=== PATIENT | female | born 1980 | race Caucasian/White ===

== ENCOUNTER 2022-09-01 12:39 | Outpatient (CLI) | payer OTHER, SELFPAY ==
--- NOTE | ~2022-09-01 | MR_ITS ---
MRI of the left shoulder Technique: Axial proton-density fat-sat images, coronal proton density fat-sat and T2 fat-sat images, and sagittal T1-weighted and T2 fat-sat images were acquired. Clinical History: Pain Findings: There is mild AC joint degenerative change. No subacromial spur. Coracoclavicular, coracoac romial, and coracohumeral ligaments are intact. Supraspinatus and infraspinatus tendons are intact, without partial or full-thickness tear. Subscapul mahamed tendon is intact. Tendon of the long head of the biceps is intact. Possible focal tear at the anterior labrum towards the anterosuperior portion. Remainder of the labru m is intact. Inferior glenohumeral ligament is thickened with increased signal. There is no significant degenerati ve change or effusion of the glenohumeral joint. No fluid distention of the subacromial/subdeltoid bu rsa. No muscle atrophy or edema. Impression: Thickening and increased signal of the inferior glenohumeral ligament suggests adhesive capsulitis. Possible focal tear of the anterior labrum. Reviewed, dictated and finalized at location . IT AGENT Impression: Thickening and increased signal of the inferior glenohumeral ligament suggests adhesive capsulitis. Possible focal tear of the anterior labrum.
== END 2022-09-01 12:40 | disposition home or self-care (01) ==
PROVIDERS: PCP Family Medicine
DX: M25.512 Pain in left shoulder (principal); M25.612 Stiffness of left shoulder, not elsewhere classified; R93.6 Abnormal findings on diagnostic imaging of limbs; M75.32 Calcific tendinitis of left shoulder
CPT/HCPCS: 73221

== ENCOUNTER 2022-09-29 07:56 | Outpatient (RCR) | payer OTHER, SELFPAY ==
--- NOTE | 2022-09-29 08:42 | PTOPEVAL1 ---
Assessment and note entered by Toño Perez Evaluation Information Assessment Status Evaluation Diagnosis adhesive capsulitis of the left shoulder Onset 05/12/22 Subjective Information Pt. reports she developed shoulder pain around May. She recalls no specific incident that brought on the pain. She describes pain in both the front and the back of the shoulder. She reports that she has undergone both MRI and xray. She reports that her MRI revealed a torn labrum. she did receive and injection which has helped to reduce her pain. she reports that she is sleeping better since her injection. She notes pain and stiffness with reaching overhead and behind her back. she states that she cannot wash her hair or put deodorant on without pain and difficulty. She reports that her goal is to be able to reach overhead as she did before her injury. Reported Pain Level Pain Score 3: Self Report Assessment PT Clinical Summary Pt. is a 42 year old female who enters the clinic with left shoulder adhesive capsulitis. She is right hand dominant. She currently presents with impaired strength, impaired ROM and pain. continued skilled PT is indicated in order to improve these areas to allow the pt. to achieve her goal of improved mobility. Plan of Care Interventions Electrical Stimulation,Hot Pack/Cold Pack,Manual Therapy,Neuro Re-education,Therapeutic Activities, Therapeutic Exercise PT Services Indicated Yes Treatment Frequency and 2x/week x 12 visits Duration These treatments will address the objective and functional deficits as defined above. The patient will be advanced safely and appropriately in order for the patient to progress towards his/her prior level of function. Additional exercises will be introduced and as well as a comprehensive home exercise program upon discharge, if needed, ?to ensure carryover of functional gains achieved in the clinic. This treatment plan has been reviewed and agreement upon by the patient.
--- NOTE | 2022-11-09 08:44 | PTOPEVAL1 ---
Assessment and note entered by Toño Perez Evaluation Information Assessment Status Discharge Diagnosis adhesive capsulitis of the left shoulder Onset 05/12/22 Subjective Information Pt. reports that she is noticing improved mobility . She is still discouraged as pain remains and fluctuates depending on her activity level. Pt. states that despite the continued pain she is much improved compared to 1-2 months ago. She reports that she will return to the doctor tomorrow and discuss options to reduce pain. Reported Pain Level Pain Score 4: Self Report Assessment PT Clinical Summary Pt. has demosntrated signficant progress in ROM and pain reports. Despite her progress pain remains. She still remains discouraged by continued pain. Explained to the pt. that adhesive capsulitis can be a long recovery. At this time she is encouraged to continue with her HEP. Informed the pt. to discuss the possibility of an interarticular injection into the left shoulder to further reduce pain. Plan of Care Interventions Electrical Stimulation,Hot Pack/Cold Pack,Manual Therapy,Neuro Re-education,Therapeutic Activities, Therapeutic Exercise PT Services Indicated Yes Treatment Frequency and D/C from PT to an independent HEP. Duration These treatments will address the objective and functional deficits as defined above. The patient will be advanced safely and appropriately in order for the patient to progress towards his/her prior level of function. Additional exercises will be introduced and as well as a comprehensive home exercise program upon discharge, if needed, ?to ensure carryover of functional gains achieved in the clinic. This treatment plan has been reviewed and agreement upon by the patient.
== END 2022-11-09 09:13 | disposition home or self-care (01) ==
LOC: CHSPT 07:56
PROVIDERS: Visit Provider Physician Assistant
DX: M75.02 Adhesive capsulitis of left shoulder (principal)
CPT/HCPCS: 97014; 97110; 97140; 97161; G0283

== ENCOUNTER 2025-01-16 09:13 | Outpatient (CLI) | payer BC, SELFPAY ==
--- NOTE | ~2025-01-16 | MM_ITS ---
EXAMINATION: MM screening laura BI w [place] HISTORY: Screening TECHNIQUE: Craniocaudal and mediolateral oblique 3-D tomosynthesis images were obtained and synthetic 2-D images were generated. CAD analysis was submitted and interpreted. COMPARISON: No prior mammogram is available for comparison at this institution. BREAST PARENCHYMAL COMPOSITION: Dense: The breasts are heterogeneously dense, which may obscure small masses FINDINGS: There is no evidence of suspicious mass, calcification, or architectural distortion to sugg est malignancy in either breast. There has been no suspicious interval change. IMPRESSION: 1. No mammographic evidence of malignancy. 2. Recommend routine screening mammography in one year. BI-RADS Category 1: Negative Reviewed, dictated and finalized at location A.
--- OUTSIDE RECORDS SUMMARY | 2025-01-16 09:19 | XMS_ITS | Clinical Summary ---
Author Organization [facility] Address [facility] [place] [address] Care Team Providers Care Athletic Agent Name Role Phone Mike Jalloh MD Primary Care Provider [phone] Allergies No known active allergies Medications traMADol (ULTRAM) 50 MG tabletIndication s:Acute Pain < 7 Day Supply Indications : Acute Pain < 7 Day Supply 1-2 every 6 hours as needed for pain 20 tablet 08/26/2022 Active oxyCODONE-acetam inophen (PERCOCET) 5-325 MG tabletIndication s:Acute Pain < 3 Day Supply Take 1 tablet by mouth every 6 (six) hours as needed for Pain. Indications : Acute Pain < 3 Day Supply 12 tablet 08/26/2022 Active Social History Tobacco Use Types Packs/Day Years Used Date Smoking Tobacco: Never Smokeless Tobacco: Never Tobacco Cessation:Counseling Given: Not Answered Alcohol Use Standard Drinks/Week Comments Not Currently 0 (1 standard drink = 0.6 oz pur e alcohol) Comments No Sex and Gender Information Value Date Recorded Sex Assigned at Not on file Legal Sex Female 5:10 PM CDT Gender Identity Not on file Sexual Orientation Not on file Last Filed Vital Signs Vital Sign Reading Time Taken Comments Blood Pressure 136/66 08/26/2022 4:11 PM SENIOR DATASTAGE DEVELOPER Pulse 65 08/26/2022 4:11 PM SENIOR DATASTAGE DEVELOPER Temperature 36.9 C (98.4 F) 08/26/2022 4:11 PM SENIOR DATASTAGE DEVELOPER Respiratory Rate 16 08/26/2022 4:11 PM SENIOR DATASTAGE DEVELOPER Oxygen Saturation 100% 08/26/2022 4:11 PM SENIOR DATASTAGE DEVELOPER Inhaled Oxygen Concentration - - Weight 77.1 kg (170 lb) 08/26/2022 4:20 PM SENIOR DATASTAGE DEVELOPER Height 170.2 cm (5' 7) 08/26/2022 4:20 PM SENIOR DATASTAGE DEVELOPER Body Mass Index 26.63 08/26/2022 4:20 PM SENIOR DATASTAGE DEVELOPER Plan of Treatment Health Maintenance Due Date Last Done Comments Colorectal Cancer Screening Colonoscopy (10 Years) 1978 Annual Physical 1981 DTaP, Tdap and Td Vaccines (6 - Tdap) 02/20/1993 02/19/1993, 10/09/1983, 03/09/1981, Additional history exists Hepatitis C 1996 Hepatitis B Vaccines (1 of 3 - 19+ 3-dose series) 1997 Mammogram Screening 2018 COVID-19 Vaccine (2023- season) 2024 03/24/2021, 03/03/2021 Meningococcal B Vaccine Aged Out No l onger eligible based on patient's age to complete this topic Meningococcal Vaccine Aged Out No tati janice eligible based on patient's age to complete this topic Pneumococcal Vaccine: Pediatrics (0 to 5 Years) and At-Risk Patients (6 to 49 Years) Aged Out No longer eligible based on patient's age to complete this topic RSV Immunizations Under 20 Months Aged Out No longer eligible based on patient's age to complete this topic [place] [address] [place] [address] Care Teams Athletic Agent Relationship Specialty Start Date End Date Mike Jalloh MD [address] [place] [address] [place] [address] PCP - General FAMILY PRACTICE 08/26/22
--- OUTSIDE RECORDS SUMMARY | 2025-01-16 09:19 | XMS_ITS | Referral Summary ---
Author Organization [facility] [address] Address [facility] [place] [address] Care Team Providers Care Bearing Maker Name Role Phone Mike Jalloh MD Primary Care Provider [phone]- [phone] Allergies Active Allergy Reactions Criticality Noted Date Comments Gabapentin Vision changes Medium 11/10/2022 Medications traMADoL (ULTRAM) 50 mg tablet Indications : Acute Pain < 7 Day Supply 1-2 every 6 hours as needed for pain 08/26/2022 Active meloxicam (MOBIC) 15 mg tablet Take 1 tablet (15 mg total) by mouth daily 30 tablet 01/15/2023 Active Active Problems No known active problems Social History Tobacco Use Types Packs/Day Years Used Date Smoking Tobacco: Never Tobacco Cessation:Counseling Given: Not Answered Personal Safety Answer Date Recorded Getting School Help Needed Not on file 08/20 Comments Unknown Sex and Gender Information Value Date Recorded Sex Assigned at Not on file Legal Sex Female 12:59 PM BUSINESS DEVELOPMENT REPRESENTATIVE Gender Identity Female 11/10/2022 7:46 AM CDT Sexual Orientation Not on file Last Filed Vital Signs Vital Sign Reading Time Taken Comments Blood Pressure 111/58 01/15/2023 10:37 AM CDT Pulse 71 01/15/2023 10:37 AM CDT Temperature - - Respiratory Rate - - Oxygen Saturation - - Inhaled Oxygen Concentration - - Weight 79 kg (174 lb 1.6 oz) 01/15/2023 10:37 AM CDT Height 170.2 cm (5' 7) 01/15/2023 10:37 AM CDT Body Mass Index 27.27 01/15/2023 10:37 AM CDT Plan of Treatment Not on file Insurance [facility] Care Teams Bearing Maker Relationship Specialty Start Date End Date Mike Jalloh MD [address] [place] [address] PCP - General Family Practice 09/16/22
--- OUTSIDE RECORDS SUMMARY | 2025-01-16 09:19 | XMS_ITS | Clinical Summary ---
Author Organization [facility] [address] Address [facility] [place] [address] Care Team Providers Care Awning Installer Name Role Phone Mike Jalloh MD Primary Care Provider [phone]- [phone] Allergies Active Allergy Reactions Criticality Noted Date Comments Gabapentin Vision changes Medium 11/10/2022 Medications traMADoL (ULTRAM) 50 mg tablet Indications : Acute Pain < 7 Day Supply 1-2 every 6 hours as needed for pain 08/26/2022 Active meloxicam (MOBIC) 15 mg tablet Take 1 tablet (15 mg total) by mouth daily 30 tablet 01/15/2023 Active Active Problems No known active problems Surgical History Surgery Date Site/Laterality Comments APPENDECTOMY HYSTERECTOMY HERNIA REPAIR SECTION Medical History Medical History Date Comments Peptic ulceration Gastric reflux Hiatal hernia Kidney stone Migraines Family History Medical History Relation Name Comments Arthritis Other Cancer Other Hypertension Other Relation Name Status Comments Other Social History Tobacco Use Types Packs/Day Years Used Date Smoking Tobacco: Never Tobacco Cessation:Counseling Given: Not Answered Personal Safety Answer Date Recorded Getting School Help Needed Not on file 08/20 Comments Unknown Sex and Gender Information Value Date Recorded Sex Assigned at Not on file Legal Sex Female 12:59 PM ABSTRACT CHECKER Gender Identity Female 11/10/2022 7:46 AM CDT Sexual Orientation Not on file Obstetrics History Last Filed Vital Signs Vital Sign Reading [...] 01/15/2023 10:37 AM CDT Plan of Treatment Health Maintenance Due Date Last Done Comments Breast Cancer Screening-Mammogram 1978 Colon Cancer Screening-Colonoscopy 1978 Depression Screening 1978 Hepatitis C Screening 1978 DTaP/Tdap/Td Vaccine (6 - Tdap) 02/20/1993 02/19/1993, 10/09/1983, 03/09/1981, Additional history exists Hepatitis B Screening 1996 Regular Well Visit/Exam 18-64 1996 Covid-19 Vaccine ( season) 2024 03/24/2021, 03/03/2021 Influenza Vaccine (Season Ended) 2025 HPV Vaccines Aged Out No longer eligi ble based on patient's age to complete this topic Pneumococcal vaccine <65 Aged Out No longer eligible based on patient's age to complete this topic Insurance [facility] Care Teams Awning Installer Relationship Specialty Start Date End Date Mike Jalloh MD [address] [place] [address] PCP - General Family Practice 09/16/22
== END 2025-01-16 09:14 | disposition home or self-care (01) ==
LOC: ANHIMG 09:16
PROVIDERS: PCP Family Medicine; Visit Provider Obstetrics & Gynecology
DX: Z12.31 Encounter for screening mammogram for malignant neoplasm of breast (principal)
CPT/HCPCS: 77063; 77067